=== PATIENT | female | born 1960 | race Caucasian/White ===

== ENCOUNTER 2017-02-20 11:40 | Emergency (ER) | payer MEDICAID ==
[~2017-02-20] VITALS: Ht 167.6 cm; Wt 54.6 kg
[2017-02-20 11:51] VITALS: BP 117/69
== END 2017-02-20 13:35 | disposition home or self-care (01) ==
LOC: ED 13:25
DX: S39.92XA Unspecified injury of lower back, initial encounter (principal); G89.11 Acute pain due to trauma; G89.29 Other chronic pain; J44.9 Chronic obstructive pulmonary disease, unspecified; F17.200 Nicotine dependence, unspecified, uncomplicated; M54.5 Low back pain; W00.0XXA Fall on same level due to ice and snow, initial encounter; Y93.89 Activity, other specified; Y92.009 Unspecified place in unspecified non-institutional (private) residence as the place of occurrence of the external cause; Y99.8 Other external cause status
CPT/HCPCS: 72110; 72190; 99284

== ENCOUNTER 2018-05-20 12:09 | Emergency (ER) | payer MEDICAID ==
[~2018-05-20] VITALS: Ht 167.6 cm; Wt 45.4 kg
[2018-05-20 12:14] VITALS: BP 133/79
--- NOTE | 2018-05-20 12:29 | NUR ---
PT WAS EEN LAST MONTH FOR SAME SYMPTOMS AND REPORTS SHE DID NOT GET MUCH BETTER BUT OVER THE LAST WEEK HER SYMTPOMS HAVE WORSENED WITH PRODUCTIVE COUGH AND SORE THROAT THAT DEVELOPED YESTERDAY. WAITING FOR ORDERS.
== END 2018-05-20 13:28 | disposition home or self-care (01) ==
LOC: ED 13:19
DX: J43.9 Emphysema, unspecified (principal); J01.10 Acute frontal sinusitis, unspecified; Z90.710 Acquired absence of both cervix and uterus; F17.200 Nicotine dependence, unspecified, uncomplicated
CPT/HCPCS: 71046; 99283